=== PATIENT | female | born 1970 | race Two or more races ===

== ENCOUNTER → 2022-08-24 | Outpatient (CLI) | payer MEDICARE, MEDICAID ==
[~2022-08-24] VITALS: Ht 160 cm; Wt 61.2 kg
[~2022-08-24] MED LIST: ADENOSINE 51 MG in GIVE UN-DILUTED 0 ML IV ONE
== END | disposition home or self-care (01) ==
LOC: XYW 07:45
PROVIDERS: ATTEND Specialist
DX: R07.9 Chest pain, unspecified (principal); R06.02 Shortness of breath; E03.9 Hypothyroidism, unspecified
CPT/HCPCS: 78452; 93017; A9500; J0153